=== PATIENT | female | born 1930 | race Caucasian/White ===

== ENCOUNTER 2019-03-18 11:06 | Inpatient (IN) | payer OTHER ==
[~2019-03-18] VITALS: Ht 152.4 cm; Wt 77.6 kg
[2019-03-18] MEDS ORDERED: ELIQUIS2.5 MG PO (11:53)
[2019-03-18] MEDS ORDERED: AVALIDE 300-121 EACH (11:54)
[2019-03-18] MEDS ORDERED: SYNTHROID50 MCG PO (11:55)
[2019-03-18] MEDS ORDERED: ZOLOFT50 MG PO (11:55)
[2019-03-18] MEDS ORDERED: TOPROL XL25 M1 PO (11:55)
[2019-03-18] MEDS ORDERED: CRESTOR5 MG PO (11:55)
[2019-03-18] MEDS ORDERED: AVALIDE PO (13:22)
[2019-03-24] MEDS ORDERED: IRBESARTAN-HCT1 EACH PO (08:26)
[2019-03-27] MEDS ORDERED: INTEGRA PLUS C1 EACH PO (07:26)
[2019-03-27] MEDS ORDERED: ELIQUIS2.5 MG PO (07:26)
[2019-03-27] MEDS ORDERED: TRAM1TAB98 PO (07:26)
[2019-03-27] MEDS ORDERED: BACTRIM DS TAB1 EACH PO (07:27)
== END 2019-03-27 20:25 | DRG 470 ==
LOC: ADM 11:45 → EDSTATUS 11:45 → O/R 03-24 05:20 → SURH 03-24 05:20
PROVIDERS: ADMIT Orthopaedic Surgery Sports Medicine
PROC: 0SRC0J9 Replacement of Right Knee Joint with Synthetic Substitute, Cemented, Open Approach (ICD-10-PCS; principal; 2019-03-24 07:00)
DX: M17.11 Unilateral primary osteoarthritis, right knee (principal); Z88.0 Allergy status to penicillin; Z88.6 Allergy status to analgesic agent; I10 Essential (primary) hypertension; E03.8 Other specified hypothyroidism; E78.49 Other hyperlipidemia

== ENCOUNTER 2019-03-18 14:58 | Emergency (ER) | payer OTHER ==
[~2019-03-18] VITALS: Ht 154.9 cm; Wt 77.6 kg
[~2019-03-18 14:58] MED LIST: AVALIDE 300-121 EACH; AVALIDE PO; CRESTOR5 MG PO; ELIQUIS2.5 MG PO; SYNTHROID50 MCG PO; TOPROL XL25 M1 PO; ZOLOFT50 MG PO
== END 2019-03-18 19:23 | disposition home or self-care (01) ==
LOC: ER 14:58
DX: S00.03XA Contusion of scalp, initial encounter (principal); S19.89XA Other specified injuries of other specified part of neck, initial encounter; W18.39XA Other fall on same level, initial encounter; Y93.89 Activity, other specified; Y92.488 Other paved roadways as the place of occurrence of the external cause; Y99.8 Other external cause status